=== PATIENT | male | born 1985 | race Caucasian/White ===

== ENCOUNTER 2021-04-02 01:35 | Emergency (ER) | payer OTHER ==
[~2021-04-02 01:35] MED LIST: FLOMAX 0.4 MG0.4 MG PO; NORCO 5-325 TA1 EACH PO; PROVENTIL HFA6.7 GM INH; TESSALON PERLE100 MG PO; ZOFRAN ODT 4 MG4 MG SL; ZOFRAN4 MG PO
[2021-04-02] MEDS ORDERED: CEPHALEXIN500 MG PO (02:18)
== END 2021-04-02 02:56 | disposition home or self-care (01) ==
LOC: ER1 01:35
DX: T63.391A Toxic effect of venom of other spider, accidental (unintentional), initial encounter (principal); Y92.9 Unspecified place or not applicable
CPT/HCPCS: 99283